=== PATIENT | male | born 1955 | race African-American/Black ===

== ENCOUNTER 2024-11-07 22:21 | Emergency (ER) | payer OTHER ==
--- OUTSIDE RECORDS SUMMARY | 2024-11-07 22:23 | XMS REPORT | Continuity of Care Document ---
Author Name Unknown Address [address] [place] [address] [facility] thconnect Address [address] [place] [address] Care Team Providers Care Rn Managed Care Name Role Phone Pcp, Patient Does Not Have A Primary Care Physic cheryl Corwin eLón Attending Clinician CORWIN WELSH Attending Clinician Unavailable SIMRAN AGUIRRE Attending Clinician Unavail able SIMRAN AGUIRRE Attending Clinician Unavail able Corwin León Attending Clinician [phone] Doctor Unassigned, [place] Attending Clinician U navailable Payers Payer Name Policy Type Policy Number Effective Date Expirati on Date Source [facility] DUAL COMP ALLY HMO-POS [id number] 2024 00:00:00 Problems Condition Name Condition Details Condition Category Status Onset Date Resolution Date Last Treatment Date Treating Clinician Comments Source 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 Disease Active 01-20 00:00: 00 [facility] Anxiety and depression Anxiety and depression Disease Active 01-20 00:00: 00 [facility] Cerebrovas cular accident (CVA), unspecifie d mechanism Cerebrovas cular accident (CVA), unspecifie d mechanism Disease Active 01-20 00:00: 00 [facility] Primary hypertensi on Primary hypertensi on Disease Active 01-20 00:00: 00 [facility] COPD COPD Disease Active 02-10 00:00: 00 [facility] Blurry vision Blurry vision Disease Active 02-10 00:00: 00 [facility] Angina pectoris Angina pectoris Disease Active 02-10 00:00: 00 [facility] HLD (hyperlipi demia) HLD (hyperlipi demia) Disease Active 02-10 00:00: 00 [facility] Allergies, Adverse Reactions, Alerts Allergy Name Allergy Type Status Severity Reaction(s) Onset Date Inactive Date Treating Clinician Comments Source NO KNOWN ALLERGIE S Drug Class Active [facility] Social History Social Habit Start Date Stop Date Quantity Comments Source [facility] of tobacco use Cigarette Smoker [facility] Alcohol intake 2024-01-21 00:00:00 2024-01-21 00:00:00 Current non-drinker of alcohol (finding) [facility] History of Social function 2024-01-21 00:00:00 2024-01-21 00:00:00 [facility] Alcoholic beverage intake 2024-01-21 00:00:00 2024-01-21 00:00:00 Current non-drinker of alcohol (finding) [facility] Tobacco Comment 2012-05-02 00:00:00 2012-05-02 00:00:00 3.5 ppd x 40 yrs, now has reduced to 0.5 pack per day [facility] Cigarettes smoked current (pack per day) - Reported 2012-05-02 00:00:00 2012-05-02 00:00:00 [facility] Cigarette pack-years 2012-05-02 00:00:00 2012-05-02 00:00:00 [facility] Tobacco use and exposure 2012-05-02 00:00:00 2012-05-02 00:00:00 Smokeless tobacco non-user [facility] Sex assigned at 1955 00:00:00 1955 00:00:00 [facility] Smoking Status Start Date Stop Date Source Smokes tobacco daily 2012-05-02 00:00:00 [facility] Medications Ordered Medication Name Filled Medication Name Start Date Stop Date Current Medication? Ordering Clinician Indication Dosage Frequency Signature (SIG) Comments Components Source escitalopra m oxalate 5 mg tablet 2023-11 00:00: 00 Yes [id number] 5mg Take 1 tablet by mouth in the morning. MUST BE SEEN FOR FURTHER REFILLS [facility] TIZANIDINE 4 mg capsule 07-22 00:00: 00 Yes [id number] TAKE 1 CAPSULE BY MOUTH IN THE MORNING AND AT NOON AND IN THE EVENING [facility] metoprolol succinate XL (TOPROL XL) 50 mg 24 hr tablet 01-20 15:47: 07 01-20 00:00 :00 No 50mg Take 50 mg by mouth daily. [facility] warfarin (COUMADIN) 2.5 mg tablet 01-20 15:42: 53 01-20 00:00 :00 No 7.5mg Take 7.5 mg by mouth. [facility] acetaminoph en-codeine 300-60 mg tablet 01-20 15:22: 32 Yes 1{tbl} Take 1 tablet by mouth in the morning. [facility] pregabalin 75 mg capsule 01-20 00:00: 00 Yes [id number] 75mg Take 1 capsule by mouth in the morning and 1 capsule in the evening. [facility] metoprolol succinate XL 50 mg 24 hr tablet 01-20 00:00: 00 Yes [id number] 50mg Take 1 tablet by mouth in the morning. [facility] predniSONE 20 mg tablet 01-20 00:00: 00 Yes [id number] 20mg Take 1 tablet by mouth in the morning. [facility] escitalopra m oxalate 5 mg tablet 01-20 00:00: 00 09-23 00:00 :00 No [id number] 5mg Take 1 tablet by mouth in the morning. [facility] tiZANidine 4 mg capsule 01-20 00:00: 00 07-22 00:00 :00 No [id number] 4mg Take 1 capsule by mouth in the morning and 1 capsule at noon and 1 capsule in the evening. [facility] atorvastati n 40 mg tablet 01-20 00:00: 00 04-21 04:59 :00 No [id number] 40mg Take 1 tablet by mouth at bedtime for 90 days. [facility] hydrocodone -acetaminop hen (NORCO) 10-325 mg tablet 05-02 10:00: 59 Yes 1{tbl} Take 1 Tab by mouth every 6 (six) hours as needed. [facility] Tramadol (RYBIX ODT) 50 mg TbDL 05-02 10:00: 59 Yes Take by mouth. [facility] naproxen (NAPROSYN) 500 mg tablet 05-02 10:00: 59 Yes 500mg Take 500 mg by mouth 2 (two) times daily with meals. [facility] terbinafine (LAMISIL) 250 mg tablet 05-02 10:00: 59 Yes 250mg Take 250 mg by mouth daily. [facility] isosorbide mononitrate (IMDUR) 60 mg 24 hr tablet 05-02 10:00: 59 Yes 60mg Take 60 mg by mouth. [facility] warfarin (COUMADIN) 2.5 mg tablet 05-02 10:00: 59 Yes 7.5mg Take 7.5 mg by mouth. [facility] metoprolol succinate XL (TOPROL XL) 50 mg 24 hr tablet 05-02 10:00: 59 Yes 50mg Take 50 mg by mouth daily. [facility] amitriptyli ne (ELAVIL) 25 mg tablet 05-02 09:54: 20 Yes 25mg Take 25 mg by mouth at bedtime. [facility] FLUTICASONE -SALMETEROL 250-50 MCG/DOSE INHALE DSDV 02-10 00:00: 00 Yes [id number] 1 puff inhaled bid [facility] ASPIRIN 81 MG ORAL CHEW 02-10 00:00: 00 Yes [id number] 1 tab daily [facility] IPRATROPIUM -ALBUTEROL 18-103 MCG/ACTUATI ON INHALE AERO 02-10 00:00: 00 Yes [id number] 1-2 puffs Q4-6 hours prn [facility] NITROGLYCER IN 0.4 MG SL SUBL 02-10 00:00: 00 Yes [id number] 1 tab Q5min prn to 3 tabs max in 15 min period [facility] ATORVASTATI N 20 MG ORAL TAB 02-10 00:00: 00 01-20 00:00 :00 No [id number] [address] [facility] Vital Signs Vital Name Observation Time Observation Value Comments S ource Systolic blood pressure 2024-01-21 21:23:00 125 mm[Hg] [facility] Diastolic blood pressure 2024-01-21 21:23:00 63 mm[Hg] [facility] Heart rate 2024-01-21 21:23:00 70 /min [facility] Body temperature 2024-01-21 21:23:00 37.17 Nel [facility] Respiratory rate 2024-01-21 21:23:00 18 /min [facility] Body height 2024-01-21 21:23:00 182.9 cm [facility] Body weight 2024-01-21 21:23:00 89.676 kg [facility] BMI 2024-01-21 21:23:00 26.81 kg/m2 [facility] Oxygen saturation in Arterial blood by Pulse oximetry 2024-01-21 21:23:00 97 /min [facility] Procedures Procedure Date / Time Performed Performing Clinicia n Source CONSENT/REFUSAL FOR DIAGNOSIS AND TREATMENT 2024-01-21 21:14:43 Doctor Unassigned, [place] [facility] ASSIGNMENT OF BENEFITS 2024-01-21 21:14:25 Docto r Unassigned, [place] [facility] Encounters Start Date/Time End Date/Time Encounter Type Admission Type Attending Clinicians Care Facility Care Department Encounter ID Source 2024-09-23 00:00:00 2024-09-23 15:26:24 Refill Corwin Welsh [facility] K[facility]AN?[facility] 1.0.114 [id number] [facility] 2024-07-22 00:00:00 2024-07-22 15:48:26 [facility] 1..114 [id number] [id number] [facility] 2024-03-24 10:30:00 2024-03-24 10:30:00 Outpatient R BLAISE CORWIN [facility] [id number] [facility] 2024-01-21 15:00:00 2024-01-21 15:59:47 Outpatient R VERÓNICACORWIN Lau [facility] [id number] [facility] 2024-01-21 15:00:00 2024-01-21 15:59:47 [facility] 1.0.114 [id number] [facility] 2024-01-21 00:00:00 2024-01-21 00:00:00 Orders Only Doctor Unassigned, [place] [facility] 1.0.114 [id number] [id number] [facility] 2024-01-21 00:00:00 2024-01-21 00:00:00 Letter (Out) [facility] 1.0.114 350.1.13.10 [id number] [facility]
[2024-11-07] MEDS ORDERED: ONDANSETRON 4 MG/2 ML VIAL ONE (23:16)
[2024-11-07] MEDS ORDERED: MORPHINE 2 MG/ML SYR ONE (23:17)
[2024-11-07] MEDS ORDERED: MORPHINE 4 MG/ML SYR ONE (23:17)
[2024-11-07] MEDS ORDERED: methocarbamoL 750 MG TAB ONE (23:17)
[2024-11-07] MEDS ORDERED: KETOROLAC 30 MG/ML INJ ONE (23:17)
[2024-11-08 00:02] LABS: Absolute Eosinophils 0.1 K/uL (0-0.5); Absolute Lymphocytes (CBC) 1.7 K/uL (0.7-4.9); Absolute Monocytes 0.5 K/uL (0.1-1.3); Absolute Neutrophil 1.6 K/uL (1.8-8.0); Basophils % 0.6 % (0-1.3); Eosinophils % 1.6 % (0-4.4); Hematocrit 47.1 % (39.6-49.0); Hemoglobin 15.5 g/dL (13.6-17.9); MCH 32.4 pg (27.0-35.0); MCV 98.3 fL (80-100); MPV 8.5 fL (7.6-11.3); Monocytes % 12.8 % (3.3-12.3); Nucleated Red Blood Cells % 0.4 % (0-0); Platelets 168 thou/uL (152-406); RBC Red Blood Cell Count 4.79 M/uL (4.33-5.43); Red Cell Distribution Width 14.6 % (12.1-15.2)
[2024-11-08 00:09] LABS: Specific Gravity < 1.005 (1.005-1.030); Sqamous Epithelial None Seen /HPF (None Seen); Urine Bacteria None Seen /HPF (<20); Urine Bilirubin NEGATIVE (Negative); Urine Blood Negative (Negative); Urine Clarity Clear (Clear); Urine Color Colorless (Yellow); Urine Culture Reflex Order NOT NEEDED; Urine Glucose NEGATIVE (Negative); Urine Ketones NEGATIVE (Negative); Urine Micro Reflex YN NO BILL MICROSCOPIC; Urine Nitrite NEGATIVE (Negative); Urine Protein NEGATIVE (Negative); Urine RBC <5 /HPF (None Seen); Urine Urobilinogen Normal (Normal); Urine WBC None Seen /HPF (<5); Urine pH 5.5 (5.0-7.0)
[2024-11-08 00:19] LABS: AST/SGOT 13 U/L (15-37); Albumin 3.2 g/dL (3.4-5.0); Albumin/Globulin Ratio 0.9 (1.1-1.8); Alkaline Phosphatase 72 U/L (45-117); Anion Gap 8.7 mEq/L (5.0-15.0); BUN Blood Urea Nitrogen 4 mg/dL (7-18); Bicarbonate 25 mEq/L (21-32); Bilirubin Total 0.3 mg/dL (0.2-1.0); Globulin 3.7 g/dL (2.3-3.5); Glomerular Filtration Rate 80 ml/min (=/>90); Glucose Level 96 mg/dL (74-106); Potassium 3.7 mEq/L (3.5-5.1); Protein, Total 6.9 g/dL (6.4-8.2); Sodium Level 137 mEq/L (136-145)
[2024-11-08 00:21] LABS: ALT/SGPT < 14 U/L (16-61)
--- NOTE | 2024-11-08 00:46 | RAD REPORT ---
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 COMPARISON: None. PROCEDURE: Noncontrast images of the abdomen and pelvis were performed from the lung bases to the ischial tubero sities. In addition multiplanar reformats in the coronal and sagittal plane were obtained and reviewed. An individualized dose optimization technique, Automated Exposure Control, was utilized for the perfo rmed procedure. FINDINGS: The lack of IV contrast limits evaluation of solid organs, subtle lesions cannot be exclude d. Lung bases: The lung bases demonstrated presence of minimal haziness within the posterior CP angles s uggesting minimal atelectasis. Liver: Grossly the unopacified liver demonstrates to be normal, no focal lesions are identified. Gallbladder: Grossly the unopacified gallbladder demonstrate to be normal. Adrenal glands: Grossly the unopacified adrenal glands demonstrate to be normal. Pancreas: Grossly the unopacified pancreas demonstrate to be normal Spleen: The spleen demonstrate to be normal. Kidneys: Grossly the unopacified kidneys demonstrate to be within normal limits. There is no eviden ce for nephrolithiasis and/or hydronephrosis. GI: Grossly the unopacified stomach and small bowel demonstrate to be within normal limits. There are mild prominent proximal small bowel loops although no definitive dilatation is seen. Findings are nonspecific possibly due to mild enteritis and/or ileus could be of consideration No evidence for bow el dilatation and/or free air. The appendix is normal. The large bowel demonstrates presence of scattered diverticulosis. : The urinary bladder demonstrate to be unremarkable. Genitalia: The prostate gland is normal. Abdominal aorta: The aorta demonstrate demonstrated presence of minimal atherosclerotic disease exten ding into the aortic bifurcation and iliac arteries. Retroperitoneum: There is no retroperitoneal lymphadenopathy. There is no evidence for ascites and/or abnormal fluid collections. Bones: The lumbar spine demonstrate a minimal anterior spondylosis and degenerative changes with vacu um effect at L2-S1. Soft tissues: The rest of the soft tissue and bony structures are within normal limits. IMPRESSION: Mild prominent proximal small bowel loops although no definitive dilatation is seen. Findings are non specific possibly due to mild enteritis and/or ileus could be of consideration. Scattered diverticulosis without evidence of acute diverticulitis. Minimal atherosclerotic disease of the aorta. Electronically signed by: Bruno Maddox MD 11/08/2024 12:40 AM NEEDLE LEADER [facility]QUE[facility] Due to temporary technical issues with the PACS/[employer] reporting system, reports are being gregorio d by the in-house radiologist without review as a courtesy to ensure prompt reporting the interpreting radiologist is fully responsible for the content of the report. Transcribed Date/Time: 11/08/2024 12:46 AM
--- NOTE | 2024-11-08 01:09 | EDPHYS ---
Physician Documentation [facility] Name: Bassem Villalba Sr Age: 69 yrs Sex: Male : 1955 Arrival Date: 11/07/2024 Time: 22:21 Bed 13 Private MD: ED Physician Sam Hopson HPI: 11/07 22:42 This 69 yrs old Black Male presents to ER via Unassigned with complaints of Low Back sp4 Pain. 11/08 20:22 69-year-old black male presents with complaint of low back pain sudden onset this sp4 morning. He reports no similar pain in the past.. Historical: - Allergies: 11/07 22:46 No Known Allergies; me1 - PMHx: 22:46 Hypertensive disorder; Depressive disorder; Hypercholesterolemia; me1 - PSHx: 22:46 None; me1 - Immunization history:: Adult Immunizations up to date. - Infectious Disease History:: Denies. - Social history:: Smoking status: Patient reports the use of cigarette tobacco products, cigars. - Family history:: not pertinent. ROS: 11/08 20:22 Constitutional: Negative for fever, chills, and weight loss, positive for acute lower sp4 back pain All other systems are negative, Exam: 20:22 Constitutional: This is a well developed, well nourished patient who is awake, alert, sp4 and in no acute distress. Head/Face: Normocephalic, atraumatic. Eyes: Pupils equal round and reactive to light, extra-ocular motions intact. Lids and lashes normal. Conjunctiva and sclera are not injected. Cornea within normal limits. Periorbital areas with no swelling, redness, or edema. ENT: Nares patent. No nasal discharge, no septal abnormalities noted. Tympanic membranes are normal and external auditory canals are clear. Oropharynx with no redness, swelling, or masses, exudates, or evidence of obstruction, uvula midline. Mucous membranes moist. Neck: Trachea midline, no thyromegaly or masses palpated, and no cervical lymphadenopathy. Supple, full range of motion without nuchal rigidity, or vertebral point tenderness. Chest/axilla: Normal chest wall appearance and motion. Nontender with no deformity. No lesions are appreciated. Cardiovascular: Regular rate and rhythm with a normal S1 and S2. No gallops, murmurs, or rubs. Normal PMI, no JVD. No pulse deficits. Respiratory: Lungs have equal breath sounds bilaterally, clear to auscultation and percussion. No rales, rhonchi or wheezes noted. No increased work of breathing, no retractions or nasal flaring. Abdomen/GI: Soft, with normal bowel sounds. No distension or tympany. No guarding or rebound. No evidence of tenderness throughout. Back: No spinal tenderness. No costovertebral tenderness. Skin: Warm, dry with normal turgor. Normal color with no rashes, no lesions, and no evidence of cellulitis. MS/ Extremity: Pulses equal, no cyanosis. Neurovascular intact. Full, normal range of motion. Neuro: Awake and alert, GCS 15, oriented to person, place, time, and situation. Cranial nerves II-XII grossly intact. Motor strength 5/5 in all extremities. Sensory grossly intact. Psych: Awake, alert, with orientation to person, place and time. Behavior, mood, and affect are within normal limits Vital Signs: 11/07 22:45 BP 130 / 68; Pulse 63; Resp 18; Temp 98.3; Pulse Ox 96% ; Weight 88.45 kg; Height 6 ft. me1 0 in. ; Pain 10/10; 22:55 BP 130 / 68; Pulse 58; Resp 17; Temp 98.1(O); Pulse Ox 97% on R/A; Pain 10/10; mt4 11/08 00:34 BP 104 / 60; Pulse 69; mt4 11/07 22:45 Body Mass Index 26.45 (88.45 kg, 182.88 cm) me1 11/07 22:45 Pain Scale: Adult me1 22:55 Pain Scale: Adult mt4 Rosa Maria Coma Score: 11/07 22:55 Eye Response: spontaneous(4). Motor Response: obeys commands(6). Verbal Response: mt4 oriented(5). Total: 15. 11/08 20:22 Eye Response: spontaneous(4). Motor Response: obeys commands(6). Verbal Response: sp4 oriented(5). Total: 15. MDM: 11/07 22:47 Medical Screening Exam initiated sp4 11/08 20:22 Data reviewed: vital signs, nurses notes, lab test result(s), electrolytes, hepatic sp4 panel, radiologic studies, CT scan. 20:27 Differential diagnosis: arthritis, strain, fracture, sciatica, contusion, Herniated sp4 disc. ED course: CT did not reveal any emergent findings. Patient does have significant degenerative disc disease and degenerative lumbar spinal disease. Patient was advised to see primary care physician for the MRI of the L-spine.. 11/07 23:02 Order name: CBC with Diff; Complete Time: 00:23 sp4 11/07 23:02 Order name: CMP; Complete Time: 00:23 sp4 11/07 23:03 Order name: Urinalysis W/Microscopic; Complete Time: 00:23 sp4 11/07 23:03 Order name: CT Abd/Pelvis - Without Contrast; Complete Time: 20: sp4 11/07 23:02 Order name: Saline Lock; Complete Time: 23:23 sp4 Administered Medications: 11/07 23:36 Drug: morphine IVP or IV 6 mg IVP once over 4 mins Route: IVP; Infused Over: 4 mins; nh4 Site: right antecubital; 11/08 01:46 Follow up: Response: No adverse reaction nh4 11/07 23:36 Drug: Ketorolac IVP 30 mg IVP once Route: IVP; Site: right antecubital; nh4 11/08 01:46 Follow up: Response: No adverse reaction nh4 11/07 23:36 Drug: Methocarbamol PO 1500 mg PO once Route: PO; mt4 11/08 01:46 Follow up: Response: No adverse reaction nh4 11/07 23:36 Drug: Ondansetron IVP 4 mg IVP once; over 2 minutes Route: IVP; Site: right antecubital;nh4 11/08 01:46 Follow up: Response: No adverse reaction nh4 Disposition Summary: 11/08/24 01:09 Discharge Ordered Problem: new sp4 Symptoms: have improved sp4 Condition: Stable sp4 Diagnosis - Acute back pain, Musculoskeletal Lumbar Pain, Acute Lumbar Sprain sp4 Followup: sp4 - With: Wil James MD - When: 7 - 10 days - Reason: Recheck today's complaints Discharge Instructions: - Discharge Summary Sheet sp4 - Acute Back Pain, Adult sp4 Forms: - Patient Portal Instructions sp4 Prescriptions: - Ibuprofen 800 mg Oral Tablet - take 1 tablet ORAL route every 8 hours As needed take with food; 30 tablet; sp4 Refills: 0, Product Selection Permitted - Tramadol 50 mg Oral tablet - take 1 tablet ORAL route every 8 hours PRN pain; 20 tablet; Refills: 0, Product sp4 Selection Permitted - methocarbamol 750 mg Oral tablet - take 2 tablets ORAL route every 8 hours for 2 days PRN pain; 60 tablet; sp4 Refills: 0, Product Selection Permitted Signatures: Dispatcher [employer] Sam Xiao MD MD sp4 Nicole Flores, RN RN me1 Chris Munoz RN RN mt4
--- NOTE | 2024-11-08 01:09 | ER ---
Nurse's Notes [facility] Name: Bassem Villalba Sr Age: 69 yrs Sex: Male : 1955 Arrival Date: 11/07/2024 Time: 22:21 Bed 13 Private MD: Diagnosis: Acute back pain, Musculoskeletal Lumbar Pain, Acute Lumbar Sprain Presentation: 11/07 22:45 Chief complaint: Patient states: c/o bilateral lower back pain that is sharp and shoots me1 down the back of both legs, started yesterday. 08/28. Denies injury. Coronavirus screen: Vaccine status: Patient reports receiving the 2nd dose of the covid vaccine. Ebola Screen: No symptoms or risks identified at this time. Initial Sepsis Screen: Does the patient meet any 2 criteria? No. Patient's initial sepsis screen is negative. Does the patient have a suspected source of infection? No. Patient's initial sepsis screen is negative. Risk Assessment: Do you want to hurt yourself or someone else? Patient reports no desire to harm self or others. Onset of symptoms was November 06, 2024. 22:45 Method Of Arrival: Wheelchair me1 22:45 Acuity: PREM 4 me1 Triage Assessment: 22:46 General: Appears uncomfortable, well groomed, well developed, well nourished, Behavior me1 is calm, cooperative, appropriate for age, Reports bilateral lower back pain that is sharp and shoots down the back of both legs, started yesterday. Denies injury. Pain: Complains of pain in left low back and right low back Pain radiates to back of left leg and back of right leg Pain currently is 10 out of 10 on a pain scale. Quality of pain is described as sharp, shooting, Pain began 1 day ago. Is continuous. EENT: No signs and/or symptoms were reported regarding the EENT system. Neuro: Level of Consciousness is awake, alert, obeys commands, Oriented to person, place, time, situation, Appropriate for age. Cardiovascular: Patient's skin is warm and dry. Respiratory: Airway is patent Respiratory effort is even, unlabored, Respiratory pattern is regular, symmetrical. GI: No signs and/or symptoms were reported involving the gastrointestinal system. : No signs and/or symptoms were reported regarding the genitourinary system. Derm: Skin is intact, is healthy with good turgor, Skin is pink, warm \T\ dry. Musculoskeletal: Reports pain in left low back and right low back. Historical: - Allergies: 22:46 No Known Allergies; me1 - PMHx: 22:46 Hypertensive disorder; Depressive disorder; Hypercholesterolemia; me1 - PSHx: 22:46 None; me1 - Immunization history:: Adult Immunizations up to date. - Infectious Disease History:: Denies. - Social history:: Smoking status: Patient reports the use of cigarette tobacco products, cigars. - Family history:: not pertinent. Screenin:58 [facility] ED Fall Risk Assessment (Adult) History of falling in the last 3 months, mt4 including since admission No falls in past 3 months (0 pts) Confusion or Disorientation No (0 pts) Intoxicated or Sedated No (0 pts) Impaired Gait No (0 pts) Mobility Assist Device Used Yes (1 pt) Altered Elimination No (0 pt) Score/Fall Risk Level 0 - 2 = Low Risk Oriented to surroundings, Maintained a safe environment, Educated pt \T\ family on fall prevention, incl call for assistance when getting out of bed, Hourly rounding (assess needs \T\ fall precautionary measures) done. Abuse screen: Denies injuries from another. Nutritional screening: No deficits noted. Tuberculosis screening: No symptoms or risk factors identified. Exposure risk/Travel Screening: None identified. Assessment: 22:55 General: Appears in no apparent distress. comfortable, Behavior is calm, cooperative, mt4 appropriate for age. Pain: Complains of pain in back Pain currently is 10 out of 10 on a pain scale. Quality of pain is described as aching, dull, shooting, stabbing, throbbing, Pain began gradually, Is continuous, chronic. Neuro: Level of Consciousness is awake, alert, obeys commands, Oriented to person, place, time, situation, [employer] are equal bilaterally Moves all extremities. Gait is steady, Speech is normal, Facial symmetry appears normal. Cardiovascular: Capillary refill < 3 seconds Pulses are all present. Respiratory: Airway Respiratory effort is even, unlabored. GI: Abdomen is non-distended. : Denies burning with urination. Musculoskeletal: Capillary refill < 3 seconds, Range of motion: intact in all extremities. Vital Signs: 22:45 BP 130 / 68; Pulse 63; Resp 18; Temp 98.3; Pulse Ox 96% ; Weight 88.45 kg; Height 6 ft. me1 0 in. ; Pain 10/10; 22:55 BP 130 / 68; Pulse 58; Resp 17; Temp 98.1(O); Pulse Ox 97% on R/A; Pain 10/10; mt4 11/08 00:34 BP 104 / 60; Pulse 69; mt4 11/07 22:45 Body Mass Index 26.45 (88.45 kg, 182.88 cm) me1 12 22:45 Pain Scale: Adult me1 22:55 Pain Scale: Adult mt4 Rosa Maria Coma Score: 11/07 22:55 Eye Response: spontaneous(4). Motor Response: obeys commands(6). Verbal Response: mt4 oriented(5). Total: 15. 11/08 20:22 Eye Response: spontaneous(4). Motor Response: obeys commands(6). Verbal Response: sp4 oriented(5). Total: 15. ED Course: 11/07 22:25 Patient arrived in ED. gm2 22:38 Morteza Alcazar PA is PHCP. cp 22:42 Sam Hopson MD is Attending Physician. sp4 22:46 Triage completed. me1 22:46 Arm band placed on Patient placed in an exam room. me1 22:55 Chris Munoz, RN is Primary Nurse. mt4 22:58 No apparent distress. Resting quietly. mt4 22:58 Patient has correct armband on for positive identification. Bed in low position. Call mt4 light in reach. Side rails up X 1. Provided Education on: vs, medications. Client placed on continuous cardiac and pulse oximetry monitoring. NIBP monitoring applied. Door closed. Lights dimmed. Warm blanket given. Pillow given. Verbal reassurance given. Assisted to bathroom. 22:58 No provider procedures requiring assistance completed. Patient maintains SpO2 mt4 saturation greater than 95% on room air. 23:44 CT Abd/Pelvis - Without Contrast In Process Unspecified. EDMS 11/08 00:34 IV discontinued, intact, bleeding controlled, No redness/swelling at site. Pressure mt4 dressing applied. 01:08 Wil James MD is Referral Physician. sp4 Administered Medications: 11/07 23:36 Drug: morphine IVP or IV 6 mg IVP once over 4 mins Route: IVP; Infused Over: 4 mins; mt4 Site: right antecubital; 11/08 01:46 Follow up: Response: No adverse reaction mt4 11/07 23:36 Drug: Ketorolac IVP 30 mg IVP once Route: IVP; Site: right antecubital; mt4 11/08 01:46 Follow up: Response: No adverse reaction mt4 11/07 23:36 Drug: Methocarbamol PO 1500 mg PO once Route: PO; mt4 11/08 01:46 Follow up: Response: No adverse reaction mt4 11/07 23:36 Drug: Ondansetron IVP 4 mg IVP once; over 2 minutes Route: IVP; Site: right antecubital;mt4 11/08 01:46 Follow up: Response: No adverse reaction mt4 Medication: 11/07 22:55 VIS not applicable for this client. mt4 Outcome: 11/08 01:09 Discharge ordered by . sp4 01:45 Condition: stable mt4 01:45 Discharge instructions given to patient, significant other, Instructed on discharge instructions, follow up and referral plans. medication usage, Demonstrated understanding of instructions, follow-up care, medications, 01:45 Prescriptions given X 3, 01:45 Discharged to home ambulatory, mt4 01:46 Patient left the ED. mt4 Signatures: Dispatcher [employer] Morteza Jennings PA PA cp Potepalov, Sergey, MD MD sp4 Nicole Flores RN RN ne1 Jannet Ramirez 2 Chris Munoz RN RN mt4
[2024-11-08 02:31] VITALS: BP 104/60; TEMP 98.1; O2SAT 97
== END 2024-11-08 01:46 | disposition home or self-care (01) ==
LOC: ER 22:21
DX: S33.5XXA Sprain of ligaments of lumbar spine, initial encounter (principal); M54.9 Dorsalgia, unspecified; Z72.0 Tobacco use
CPT/HCPCS: 85025; 81001; 36415; 80053; 74176; 96375; 96374; 99284; J2270; J2405